=== PATIENT | male | born 1960 | race Caucasian/White ===

== ENCOUNTER → 2022-09-15 10:45 | Outpatient (CLI) | payer BC, SELFPAY ==
--- NOTE | ~2022-09-15 | XR_ITS ---
XR lumbar spine 2-3V 09/15/2022 11:02 Indication: Chronic low back pain Procedure: 3 views lumbar spine Comparison: No prior studies Findings: Mild levoscoliosis. Vertebral body heights are maintained. There is hypertrophy of the spin ous processes. There is moderate multilevel facet hypertrophy. No evidence for spondylolisthesis. No acute fracture or traumatic malalignment. Pedicles intact. Sacral foramen are symmetric. Impression: 1: Moderate lumbar spondylosis with mild levoscoliosis. Reviewed, dictated and finalized at location B. Impression: 1: Moderate lumbar spondylosis with mild levoscoliosis.
== END ==
PROVIDERS: PCP Emergency Medicine; Visit Provider Chiropractor
DX: M47.816 Spondylosis without myelopathy or radiculopathy, lumbar region (principal); M54.50 Low back pain, unspecified; G89.29 Other chronic pain; M41.9 Scoliosis, unspecified
CPT/HCPCS: 72100

== ENCOUNTER 2024-04-30 11:01 | Emergency (ER) | payer MEDICARE, OTHER, SELFPAY ==
[2024-04-30 11:02] VITALS: BP 186/95; PULSE 85; RESP 18; TEMP 36.6; O2SAT 99
[2024-04-30 11:15] LABS: Basophils Absolute Auto 0.1 K/mm3 (0.0-0.1); Basophils Percent Auto 1.1 % (0.2-1.2); Eosinophils Absolute Auto 0.2 K/mm3 (0-0.3); Eosinophils Percent Auto 2.8 % (0-4.4); Hematocrit 39.8 % (42.0-52.0); Hemoglobin 13.7 g/dL (14.0-18.0); Immature Granulocyte Absolute 0.02 K/mm3 (0.00-0.031); Immature Granulocyte Percent A 0.3 % (0-0.5); Lymphocytes Absolute Auto 1.84 K/mm3 (0.9-3.2); Lymphocytes Percent Auto 28.4 % (18.3-44.2); Mean Corpuscular HGB Conc 34.4 g/dl (32-36); Mean Corpuscular Volume 87.1 fl (80-100); Mean Platelet Volume 8.6 fl (7.4-10.4); Monocytes Absolute Auto 0.5 K/mm3 (0.1-0.6); Monocytes Percent Auto 7.4 % (2.6-8.5); Neutrophils Absolute Auto 3.9 K/mm3 (1.3-6.7); Platelet Count Result 402 k/mm3 (150-375); Red Blood Count 4.57 M/mm3 (4.6-6.20); Red Cell Distribution Width 12.9 % (11.5-14.5); White Blood Count 6.5 K/mm3 (4.5-10.0)
[2024-04-30 11:28] LABS: Alanine Aminotransferase 29 U/L (6-50); Albumin Level 4.6 g/dL (3.5-5.1); Alkaline Phosphatase 61 U/L (38-126); Anion Gap 9 mmol/L (4-12); Aspartate Amino Transferase 30 U/L (17-59); Bilirubin,Total 0.6 mg/dL (0.2-1.3); Blood Urea Nitrogen 11 mg/dL (9-20); Calcium 9.1 mg/dL (8.4-10.2); Carbon Dioxide 24 mmol/L (22-30); Chloride 100 mmol/L (98-107); Estimated CRCL calculation 81 ml/min; Estimated Glomerular Filt Rate > 60; Glucose 103 mg/dL (65-110); Potassium 4.3 mmol/L (3.4-5.0); Sodium 133 mmol/L (137-145)
--- NOTE | 2024-04-30 12:40 | ED_ITS ---
HPI - Recheck/Abnormal Lab/Rx General Chief Complaint: Recheck/Abnormal Lab/Rx Stated Complaint: low sodium Time Seen by Provider: 04/30/24 12:26 Source: patient Mode of arrival: ambulatory Limitations: no limitations History of Present Illness HPI narrative: This is a 63-year-old male who presents to the ED for chief complaint of abnormal lab draw outpatient. Reports he was told by his PCP office to go to the ER to the low sodium. He was just taken off the diuretic hydrochlorothiazide recently and was going to reassess next week with PCP. However after getting the blood drawn this week is PCP recommended he go to the ER for a sodium of 131. Patient states that he is completely asymptomatic. Related Data Home Medications Medication Instructions Recorded Confirmed citalopram 40 mg tablet 40 mg PO QAM 12/01/20 04/22/24 thioridazine 50 mg tablet 50 mg PO QPM 12/01/20 04/22/24 trazodone 50 mg tablet 50 mg PO QPM 12/01/20 04/22/24 Allergies Allergy/AdvReac Type Severity Reaction Status Date / Time No Known Allergies Allergy Verified 04/22/24 13:08 Review of Systems Review of Systems: All systems as dictated in [facility] Past Medical History Medical History Hay fever Mumps Nervous breakdown (~1984) Psychiatric care Sinus problem Family History Family History Father Hypertension Mother , 83 Depression Kidney problem Social History Social History Social History: Patient drinks several diet sodas daily. Smoking status: Never smoker Second hand tobacco smoke exposure: No Alcohol intake: current Drinks per week: 7 Alcohol use details: Patient drinks several beers weekly. Substance use: never Substance use type: does not use Do You Feel Safe in your Home?: Yes Lack of Transportation: No Lack of Food: Never True Current Housing: I Have Housing Concerned About Future Housing: No Difficulty Paying Gas/Electric Bills: No Difficulty Paying for Meds: No Currently Unemployed: No Education: Trade/Vocational Certificate Difficulty w/ Childcare or Family Care: No Living arrangements: alone Additional living arrangements comments: Single Occupation/Education: retired Gender identity (if verbalized by the patient): Male Exam Narrative: GENERAL: Well-appearing, well-nourished, and in no acute distress. HEAD: Normocephalic, atraumatic. EYES: PERRLA and EOMI. ENT: Nares clear, no rhinorrhea or epistaxis. Mucous membranes moist. Oropharynx without tonsillar hypertrophy exudate or other lesions. NECK: Supple. No adenopathy or masses. CHEST: No respiratory distress. Clear to auscultation. No wheezes rales or rhonchi HEART: Regular rate and rhythm. No murmur heard. Normal peripheral pulses. ABDOMEN: Soft, nontender, nondistended, normal active bowel sounds. MSK: Normal range of motion. No edema. SKIN: Warm, dry, no rash. NEURO: Alert and oriented x4. No focal deficits. PSYCH: Normal mood and affect. Course Vital Signs Vital signs: Vital Signs Temperature 97.8 F 04/30/24 11:02 Pulse Rate 85 04/30/24 11:02 Respiratory Rate 18 04/30/24 11:02 Blood Pressure 186/95 H 04/30/24 11:02 Pulse Oximetry 99 04/30/24 11:02 Oxygen Delivery Room Air 04/30/24 11:02 Temperature 97.8 F 04/30/24 11:02 Pulse Rate 80 04/30/24 12:58 Respiratory Rate 15 04/30/24 12:58 Blood Pressure 167/98 H 04/30/24 12:58 Pulse Oximetry 100 04/30/24 12:58 Oxygen Delivery Room Air 04/30/24 11:02 MDM - Recheck/Abnormal Lab/Rx MDM Narrative Medical decision making narrative: This is a 63-year-old male who presents to the ED after PCP referred him here for low sodium. He has no complaints. Vitals show elevated blood pressure but otherwise normal. Exam is benign. Lab work Redrawn today and shows an unremarkable CBC CMP revealing slightly low sodium at 133 but otherwise grossly normal CMP. To the patient being asymptomatic and sodium slightly decreased he will be discharged today. Encouraged PCP follow-up for outpatient investigation of these abnormal labs. Patient will be discharged in stable condition. Supportive measures discussed and return precautions given. Patient is understanding and agreeable with plan for discharge with PCP follow-up. Lab Data 04/30/24 11:09 04/30/24 11:09 Labs: Lab Results 04/30/24 Range/Units 11:09 WBC 6.5 (4.5-10.0) K/mm3 RBC 4.57 L (4.6-6.20) M/mm3 Hgb 13.7 L (14.0-18.0) g/dL Hct 39.8 L (42.0-52.0) % MCV 87.1 (80-100) fl MCH 30.0 (26-34) pg MCHC 34.4 (32-36) g/dl RDW 12.9 (11.5-14.5) % Plt Count 402 H (150-375) k/mm3 MPV 8.6 (7.4-10.4) fl Immature Gran % (Auto) 0.3 (0-0.5) % Neut % (Auto) 60.0 (45.5-73.1) % Lymph % (Auto) 28.4 (18.3-44.2) % [place] % (Auto) 7.4 (2.6-8.5) % Eos % (Auto) 2.8 (0-4.4) % Baso % (Auto) 1.1 (0.2-1.2) % Lymph # (Auto) 1.84 (0.9-3.2) K/mm3 [place] # (Auto) 0.5 (0.1-0.6) K/mm3 Eos # (Auto) 0.2 (0-0.3) K/mm3 Baso # (Auto) 0.1 (0.0-0.1) K/mm3 Abs Immat Gran (auto) 0.02 (0.00-0.031) K/mm3 Absolute Neuts (auto) 3.9 (1.3-6.7) K/mm3 Absolute Nucleated RBC 0.000 (0.0-0.012) K/mm3 Nucleated RBC % 0.0 (0.0-0.2) % Sodium 133 L (137-145) mmol/L Potassium 4.3 (3.4-5.0) mmol/L Chloride 100 (98-107) mmol/L Carbon Dioxide 24 (22-30) mmol/L Anion Gap 9 (4-12) mmol/L BUN 11 (9-20) mg/dL Creatinine 1.00 (0.7-1.3) mg/dL Estim Creat Clear Calc 81 ml/min Estimated GFR > 60 (59 - ) Glucose 103 (65-110) mg/dL Calcium 9.1 (8.4-10.2) mg/dL Total Bilirubin 0.6 (0.2-1.3) mg/dL AST 30 (17-59) U/L ALT 29 (6-50) U/L Alkaline Phosphatase 61 (38-126) U/L Total Protein 7.0 (6.3-8.2) g/dL Albumin 4.6 (3.5-5.1) g/dL Discharge Plan Discharge Clinical Impression: Hyponatremia Patient Disposition: Home, Self-Care Condition: Stable Instructions: Antibiotic Form Additional Instructions: Exam and lab work today are reassuring. Sodium is slightly low and would be best addressed outpatient If you have any new or worsening symptoms please return to the ER for further evaluation. Prescriptions: No Action trazodone 50 mg tablet 50 mg PO QPM citalopram 40 mg tablet 40 mg PO QAM thioridazine 50 mg tablet 50 mg PO QPM cholecalciferol (vitamin D3) 50 mcg (2,000 unit) capsule 100 mcg PO DAILY Qty: 180 2RF metoprolol succinate 25 mg tablet extended release 24 hr See Rx Instructions .ROUTE .COMPLEX Qty: 180 2RF Dose Instruction: TAKE 1 TABLET BY MOUTH TWICE DAILY Rx Instructions: TAKE 1 TABLET BY MOUTH TWICE DAILY atorvastatin 10 mg tablet See Rx Instructions .ROUTE .COMPLEX Qty: 90 2RF Dose Instruction: TAKE 1 TABLET BY MOUTH DAILY Rx Instructions: TAKE 1 TABLET BY MOUTH DAILY fenofibrate nanocrystallized 48 mg tablet See Rx Instructions .ROUTE .COMPLEX Qty: 90 2RF Dose Instruction: TAKE 1 TABLET BY MOUTH DAILY Rx Instructions: TAKE 1 TABLET BY MOUTH DAILY naproxen 500 mg tablet See Rx Instructions .ROUTE .COMPLEX Qty: 180 2RF Dose Instruction: TAKE 1 TABLET BY MOUTH TWICE DAILY Rx Instructions: TAKE 1 TABLET BY MOUTH TWICE DAILY lisinopril 20 mg tablet See Rx Instructions .ROUTE .COMPLEX Qty: 90 2RF Dose Instruction: TAKE 1 TABLET BY MOUTH DAILY Rx Instructions: TAKE 1 TABLET BY MOUTH DAILY Follow-up/Referrals: Eamon Myles MD [Primary Care Provider] - Time of Disposition: 12:44
[2024-04-30 12:58] VITALS: BP 167/98; PULSE 80; RESP 15; O2SAT 100
== END 2024-04-30 12:59 | disposition home or self-care (01) ==
LOC: ANHED 12:49
PROVIDERS: Emergency Medicine; Emergency Provider Physician Assistant; PCP Emergency Medicine
DX: E87.1 Hypo-osmolality and hyponatremia (principal); Z79.899 Other long term (current) drug therapy
CPT/HCPCS: 36415; 80053; 85025; 99283